=== PATIENT | male | born 1995 | race Caucasian/White ===

== ENCOUNTER 2017-05-01 00:15 | Emergency (ER) | payer OTHER ==
[2017-05-01] MEDS ORDERED: ACETAMINOPHEN 500 MG TAB PO ONE (00:38)
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
[2017-05-01 01:57] VITALS: BP 126/71; PULSE 76; RESP 16; TEMP 98.1; O2SAT 97
== END 2017-05-01 01:35 | disposition home or self-care (01) ==
DX: S43.102A Unspecified dislocation of left acromioclavicular joint, initial encounter (principal); V18.4XXA Pedal cycle driver injured in noncollision transport accident in traffic accident, initial encounter; Y92.410 Unspecified street and highway as the place of occurrence of the external cause; Y99.8 Other external cause status; Y93.55 Activity, bike riding